=== PATIENT | female | born 1960 | race African-American/Black ===

== ENCOUNTER → 2016-12-16 | Outpatient (CLI) | payer OTHER ==
[~2016-12-16] MED LIST: ASPI81TA11 PO; CARV6.252 PO; FURO40TA PO; GLUCTAB PO; LOSA50TA PO; PRAV40TA PO; PRED10 PO; SPIR25TA PO
--- NOTE | 2017-01-24 10:06 | RSPPFT ---
DATE OF PROCEDURE: 12/16/16 COMMENTS: Spirometry shows FVC of 1.9 at 69% of predicted, FEV1 of 1.7 at 88%, FEV1/FVC ratio is normal. Flow is normal at FEF 25, FEF 50, FEF 75 and FEF 25-75. There is no response after bronchodilator treatment. Residual volume is normal. TLC is increased. Diffusion capacity is decreased. Flow volume loop indicates a normal pattern. IMPRESSION: 1. Normal spirometry. 2. No response to bronchodilator treatment. 3. Lung volumes show mild hyperinflation. 4. Moderate loss in diffusion capacity.
== END ==
LOC: HRSP 08:35
PROVIDERS: ATTEND Specialist
DX: D86.9 Sarcoidosis, unspecified (principal)
CPT/HCPCS: 94060; 94726; 94729

== ENCOUNTER 2017-02-27 11:39 | Emergency (ER) | payer OTHER ==
[~2017-02-27] VITALS: Ht 154.9 cm; Wt 72.0 kg
[2017-02-27 11:41] VITALS: BP 176/70; PULSE 62; RESP 24; TEMP 98.1; O2SAT 99
[2017-02-27 11:58] VITALS: RESP 18
--- NOTE | 2017-02-27 14:28 | PD ---
HPI Chief Complaint: Musculoskeletal Complaint Time Seen by Provider: 14:26 Travel History International Travel<30 days: No Contact w/Intl Traveler<30days: No Traveled to known affect area: No History of Present Illness HPI 57-year-old female presents to the emergency department for evaluation of left leg pain is been ongoing for 2 months. Patient states it hurts from her thigh all the way down to her lower leg. Patient denies any fevers or chills. Patient denies any chest pressure is breath. No abdominal pain. No nausea, vomiting, diarrhea. Patient does have history of CHF, sarcoidosis, history of breast cancer. She is currently on prednisone for sarcoidosis. Patient denies any history of blood clot. She cannot recall any aggravating or relieving factors. She denies any pain in her right leg. Patient denies any other complaints at this time. PFSH Past Medical History Blood Disorders: No Heart Rhythm Problems: No Cancer: Yes (BREAST W CHEMO, SEES DR ESCALANTE, SARCOID) Cardiovascular Problems: Yes High Cholesterol: Yes Chemotherapy: Yes (FEBRUARY 2009 LAST CHEMO) Chest Pain: No Congestive Heart Failure: Yes (Diagnosed in October 2014) Diabetes: Yes Patient Takes Glucophage: No Diminished Hearing: No Endocrine: Yes Gastrointestinal Disorders: Yes (CONSTIPATION) GERD: Yes (occasional) Genitourinary: No Hiatal Hernia: No Hypertension: Yes Immune Disorder: No Musculoskeletal: No Neurologic: No Psychiatric: No Reproductive: No Respiratory: No Immunizations Current: Yes Myocardial Infarction: No Pneumonia: Yes Radiation Therapy: Yes Thyroid Disease: No Ulcer: No ?: Not Menopausal: Yes : 4 Para: 4 Past Surgical History Abdominal Surgery: No AICD: No Appendectomy: No Arteriovenous Shunt: No Cardiac Surgery: No Cholecystectomy: No Ear Surgery: No Endocrine Surgery: No Eye Surgery: No Genitourinary Surgery: No Gynecologic Surgery: Yes (LEFT MASTECTOMY in 2007) Insulin Pump: No Joint Replacement: No Mastectomy: Yes (left ) Oral Surgery: No Pacemaker: No Other Surgery: Yes (LEFT MASTECTOMY IN 2007, port placement ) Social History Alcohol Use: No Tobacco Use: No Substance Use: No Allergies-Medications (Allergen,Severity, Reaction): Coded Allergies: Codeine (Verified Allergy, Intermediate, Shortness of Breath, 02/27/17) Reported Meds & Prescriptions Reported Meds & Active Scripts Active Reported Atorvastatin (Atorvastatin Calcium) 40 Mg Tab 40 Mg PO HS Ecotrin Low Strength (Aspirin) 81 Mg Tabdr 81 Mg PO DAILY Vitamin D3 (Cholecalciferol) 1,000 Unit Tab 1,000 Units PO DAILY Losartan (Losartan Potassium) 50 Mg Tab 75 Mg PO DAILY Carvedilol 25 Mg Tab 25 Mg PO BID Prednisone 10 Mg Tab 10 Mg PO DAILY Review of Systems Except as stated in HPI: all other systems reviewed are Neg Physical Exam Narrative GENERAL: Well-nourished, well-developed female patient, afebrile. SKIN: Focused skin assessment warm/dry. HEAD: Normocephalic. Atraumatic. EYES: No scleral icterus. No injection or drainage. NECK: Supple, trachea midline. No JVD or lymphadenopathy. CARDIOVASCULAR: Regular rate and rhythm without murmurs, gallops, or rubs. Left pedal pulse is 2+. RESPIRATORY: Breath sounds equal bilaterally. No accessory muscle use. Lungs sounds are clear to auscultation. GASTROINTESTINAL: Abdomen soft, non-tender, nondistended. MUSCULOSKELETAL: No cyanosis, or edema. No edema noted of the left leg. She has full range of motion all joints. BACK: No obvious deformity. No CVA tenderness. Patient has tenderness to palpation of midline lumbar spine and left lumbar paraspinal musculature. Data Data Last Documented VS Vital Signs Date Time Temp Pulse Resp B/P Pulse Ox O2 Delivery O2 Flow Rate FiO2 02/27/17 11:58 18 02/27/17 11:41 98.1 62 176/70 99 Room Air Orders Us Leg Venous Doppler (02/27/17 ) Iv Access Insert/Monitor (02/27/17 14:23) Complete Blood Count With Diff (02/27/17 14:23) Basic Metabolic Panel (Bmp) (02/27/17 14:23) Creatine Kinase (Cpk) (02/27/17 14:23) Labs Laboratory Tests Test 02/27/17 14:55 White Blood Count 6.3 TH/MM3 Red Blood Count 4.28 MIL/MM3 Hemoglobin 11.2 GM/DL Hematocrit 34.4 % Mean Corpuscular Volume 80.3 FL Mean Corpuscular Hemoglobin 26.2 PG Mean Corpuscular Hemoglobin 32.6 % Concent Red Cell Distribution Width 15.1 % Platelet Count 563 TH/MM3 Mean Platelet Volume 7.4 FL Neutrophils (%) (Auto) 71.9 % Lymphocytes (%) (Auto) 19.3 % Monocytes (%) (Auto) 6.8 % Eosinophils (%) (Auto) 1.1 % Basophils (%) (Auto) 0.9 % Neutrophils # (Auto) 4.5 TH/MM3 Lymphocytes # (Auto) 1.2 TH/MM3 Monocytes # (Auto) 0.4 TH/MM3 Eosinophils # (Auto) 0.1 TH/MM3 Basophils # (Auto) 0.1 TH/MM3 CBC Comment DIFF FINAL Differential Comment Sodium Level 139 MEQ/L Potassium Level 4.3 MEQ/L Chloride Level 103 MEQ/L Carbon Dioxide Level 27.5 MEQ/L Anion Gap 9 MEQ/L Blood Urea Nitrogen 18 MG/DL Creatinine 0.97 MG/DL Estimat Glomerular Filtration 71 ML/MIN Rate Random Glucose 101 MG/DL Calcium Level 8.7 MG/DL Total Creatine Kinase 72 U/L [facility] Medical Decision Making Medical Screen Exam Complete: Yes Emergency Medical Condition: Yes Medical Record Reviewed: Yes Interpretation(s) Last Impressions Lower Extremity Ultrasound 02/27/17 0000 Signed Impressions: Service Date/Time: , February 27, 2017 15:22 - CONCLUSION: Normal examination. Gutierrez Ferguson MD Differential Diagnosis sciatica vs. DVT vs. muscle spasm vs. muscle strain Narrative Course 57 year old female presents to the emergency department for evaluation of left leg pain for 2 months, no alleviating or aggravating factors. Patient is concerned of DVT. Sciatica more likely. CBC, BMP, CK are ordered and pending. Venous doppler US of the left lower extremity is ordered and pending. CBC shows hemoglobin 11.2, hematocrit 34.3, platelets 563. BMP is unremarkable. CK is 72. US is normal. Laboratory findings and ultrasound findings are reassuring. Symptoms are consistent with sciatica. Patient will be discharged with a prescription for Robaxin. She started to take ibuprofen sxyd-lri-[id number] and follow-up with her primary care physician. She verbalizes agreement and understanding. The patient was discharged in stable condition with instructions, including return instructions and follow up instructions. Diagnosis Primary Impression: Sciatica Qualified Code: M54.32 - Sciatica of left side Referrals: Primary Care Physician call for appointment Patient Instructions: General Instructions, Sciatica (ED) Additional Instructions: Uhdl-hyb-shhvjoi ibuprofen every 6-8 hours as needed for pain. Take Robaxin as directed as needed. Follow-up with your primary care physician. Return to the emergency department for any acute worsening of symptoms. Med/Other Pt SpecificInfo: Prescription(s) given Scripts Methocarbamol (Robaxin)750 Mg [id number] Mg PO TID PRN (MUSCLE SPASM) #21 TAB Ref 0 Prov:Alethea Nj 02/27/17 Disposition: 01 DISCHARGE HOME Condition: Stable Alethea Nj Feb 27, 2017 14:27
[2017-02-27] MEDS ORDERED: PRED10 PO (15:02)
[2017-02-27] MEDS ORDERED: ASPI-147 PO (15:02)
[2017-02-27] MEDS ORDERED: LOSA50TA PO (15:02)
[2017-02-27] MEDS ORDERED: ATOR40TA16 PO (15:02)
[2017-02-27] MEDS ORDERED: CARV25TA PO (15:02)
[2017-02-27] MEDS ORDERED: VITA100064 PO (15:02)
[2017-02-27 15:48] LABS: AUTOMATED NEUTROPHIL # 4.5 TH/MM3 (1.8-7.7); BASOPHIL # 0.1 TH/MM3 (0-0.2); BASOPHIL % 0.9 % (0.0-2.0); EOSINOPHIL # 0.1 TH/MM3 (0-0.4); EOSINOPHIL % 1.1 % (0.0-4.0); HEMATOCRIT 34.4 % (35.0-46.0); HEMO FLAGS DIFF FINAL; LYMPH % 19.3 % (9.0-44.0); LYMPHOCYTE # 1.2 TH/MM3 (1.0-4.8); MEAN CELL VOLUME 80.3 FL (80.0-100.0); MEAN CORPUSCULAR HEMOGLOBIN 26.2 PG (27.0-34.0); MEAN CORPUSCULAR HGB CONC 32.6 % (32.0-36.0); MONO % 6.8 % (0.0-8.0); NEUT % 71.9 % (16.0-70.0); PLATELET COUNT 563 TH/MM3 (150-450); RED BLOOD COUNT 4.28 MIL/MM3 (4.00-5.30); RED CELL DISTRIBUTION WIDTH 15.1 % (11.6-17.2); WHITE BLOOD COUNT 6.3 TH/MM3 (4.0-11.0)
--- NOTE | 2017-02-27 15:59 | RADRPT ---
EXAM DATE/TIME: 02/27/2017 15:22 [facility] COMPARISON: No previous studies available for comparison. INDICATIONS : Left leg pain. MEDICAL HISTORY : Gastroesophageal reflux disease. Hypercholesterolemia. Hypertension. CHF. Diabetes. Chemotherapy. Radiation therapy. SURGICAL HISTORY : Mastectomy, left. Port placement. ENCOUNTER: Initial ACUITY: 1 day PAIN SCORE: 4/10 LOCATION: Left leg. TECHNIQUE: Venous ultrasound of the leg was performed from the inguinal ligament to the proximal calf. Real-allie e, color Doppler and spectral tracing, compression and augmentation techniques were used. FINDINGS: There is normal compressibility of the deep venous system from the inguinal region to the proximal ca lf. No echogenic clot is seen in the lumen of the common femoral, femoral, popliteal, and posterior tibial veins. There is a normal response of the venous system to proximal and distal augmentation an d respiration. CONCLUSION: Normal examination. Gutierrez Ferguson MD on February 27, 2017 at 15:57 Board Certified Radiologist. This report was verified electronically.
[2017-02-27 16:04] LABS: BICARBONATE 27.5 MEQ/L (21.0-32.0); POTASSIUM 4.3 MEQ/L (3.5-5.1)
[2017-02-27] MEDS ORDERED: ROBA750T PO (16:21)
== END 2017-02-27 16:35 | disposition home or self-care (01) ==
LOC: NEPD 11:39
DX: M54.32 Sciatica, left side (principal)
CPT/HCPCS: 80048; 82550; 85025; 93971; 99284

== ENCOUNTER 2017-07-08 12:00 | Inpatient (IN) | payer OTHER ==
[~2017-07-08] VITALS: Ht 154.9 cm; Wt 70.9 kg
[~2017-07-08 12:00] MED LIST changes: +ASPI-147 PO; -ASPI81TA11 PO; +ATOR40TA16 PO; +CARV25TA PO; -CARV6.252 PO; -FURO40TA PO; -GLUCTAB PO; -PRAV40TA PO; -SPIR25TA PO
[2017-08-05] MEDS ORDERED: METF500T PO (14:35)
[2017-08-07] MEDS ORDERED: METOPROLOL TARTRATE 25 MG TAB PO PRN (05:45)
[2017-08-07] MEDS ORDERED: SODIUM CHLORID 0.9% 500 ML IV PRN (05:45)
[2017-08-07] MEDS ORDERED: LACTATED RINGER'S 1000 ML IV PRN (05:45)
[2017-08-07] MEDS ORDERED: POVIDONE IODINE 5% (ANTISEPSIS KIT) 4 APPLICATIONS EACH NARE PRN (05:45)
[2017-08-07] MEDS ORDERED: CHLORHEXIDINE GLUCONATE 2 % 1 PACK (2 CLOTHS) TOPICAL PRN (05:45)
[2017-08-07] MEDS ORDERED: POVIDONE IODINE 7.5% SCRUB 118 ML BOTTLE TOPICAL SCH (06:00)
[2017-08-07] MEDS ORDERED: ceFAZolin 2 GM PREMIX 50 ML IV SCH (06:00)
[2017-08-07] MEDS: VANCOMYCIN 1000 MG/NS 250 ML (for <70 kg) IV SCH ×4 (06:10→07:10)
[2017-08-07] MEDS ORDERED: GENTAMICIN SULFATE 80 MG/2 ML VIAL ONE ×2 (06:16→06:18)
[2017-08-07] MEDS ORDERED: SODIUM CHLORIDE 0.9% IV SCH (07:30)
[2017-08-07] MEDS ORDERED: EXPAREL PERI-ARTICULAR INJECTION (TOTAL VOL. 60 ML) P-ARTICULR SCH ×2 (07:30)
[2017-08-07] MEDS ORDERED: TRANEXAMIC ACID IV SCH (07:30)
[2017-08-07] MEDS ORDERED: ACETAMINOPHEN/HYDROcodone 325 MG/7.5 MG TAB PO PRN (09:00)
--- NOTE | 2017-08-07 09:14 | PD.OP ---
cc: Augustine Payne MD Operative Report Date of Surgery: Aug 07, 2017 Preoperative Diagnosis: Avascular necrosis left hip. Osteoarthritis left hip, severe Postoperative Diagnosis: Same Procedure: Left total hip replacement arthroplasty, direct anterior exposure Anesthesia: Gen. Surgeon: Augustine Payne Cloth Checker(s): MEGHANN Yin Operation and Findings: EBL: 150 cc INDICATION: This patient presents with significant hip pain related to vascular necrosis of the left hip with severe degenerative changes.. Despite extensive conservative care this patient continues to be painful and now presents for surgical treatment. NOTE: Janet Yin PA-C was present for the entire surgical procedure as my assistant professor of philosophy. In my medical opinion her skill and care was necessary for the proper management of this patient. COMPONENTS: COMPANY: [employer] CUP: Anna, 48 mm, 100 series, gription surface LINER: Altrx and 2 mm, neutral STEM: Corail, size 11, high offset, hydroxyapatite-coated HEAD: Ceramic, +1, 32 mm, 12/14 taper PROCEDURE: This patient was brought to the operating room and anesthetized in the supine position and positioned on the fracture table with both legs held extended. The left hip and leg was scrubbed with alcohol followed by Hibiclens followed by ChloraPrep and draped sterilely. Antibiotics were given within routine time window and a timeout was done. A 4 inch incision was made starting 2 cm distal and 2 cm lateral to the anterior superior iliac spine. The fascia carlyle was opened longitudinally. The interval between the fascia carlyle and the rectus was opened down to the capsule of the hip joint. Retractors were positioned allowing good visualization of the capsule. This was opened longitudinally and flaps were created. Stay sutures were utilized. Exposure was excellent. The neck was cut at the proper location using fluoroscopy as a guide. The head was removed. Deep retractors were positioned allowing good visualization of the acetabulum. Acetabulum was deepened down to the floor starting with a proper size reamer and reaming up to 47 mm. A trial was utilized. Fluoroscopy was used to check position and confirmed satisfactory alignment. The rim was reamed with a 48 mm reamer and the final cup was positioned in approximately 20 of anteversion and 40-45 of abduction. Position was satisfactory. A single hole eliminator was positioned followed by the final liner. The lifting hook was utilized. The leg was dropped to the floor, maximally externally rotated and brought across the midline. Retractors were positioned. A box osteotome was utilized followed by progressive broaching to the proper stem size. Trial reduction showed excellent alignment and fit. With 60 of external rotation the leg was dropped to the floor without evidence of anterior subluxation. The wound was irrigated. The final stem was inserted and was found to be very stable. The final reduction using the final head. Stability was as previously noted. Intraoperative x-rays were taken. The wound was irrigated copiously. Hemostasis was controlled. Local anesthesia was utilized. The capsule was repaired with #2 Tycron sutures. The fascia carlyle was repaired with running 0 PDS on a loop. Subcutaneous tissue was approximated with 2-0 Vicryl and skin with running intradermal 3-0 Vicryl followed by Steri-Strips. A sterile dressing was applied. The patient was awakened and taken to the recovery room in satisfactory condition. FINDINGS: There was nearly complete dissolution of the bone and articular cartilage of the left hip related to collapse from avascular necrosis. The final solution was excellent. There was approximately 3/8 of an inch shortening of the left leg compared to the right which was lengthened at the time of surgery to bring the leg bag very close to anatomic compared to the contralateral right side Augustine Payne MD Aug 07, 2017 09:14
[2017-08-07] MEDS ORDERED: HYDR-3580 PO (09:16)
[2017-08-07] MEDS ORDERED: ASPI81 CHEW (09:16)
[2017-08-07] MEDS ORDERED: MISCELLANEOUS NURSING INFORMATION XX PRN (09:30)
[2017-08-07] MEDS ORDERED: NALOXONE HCL 0.4 MG/ML AMP IV PUSH PRN (09:30)
[2017-08-07] MEDS: MAGNESIUM HYDROXIDE SUSP 30 ML CUP PO SCH ×2 (09:30→20:59)
[2017-08-07] MEDS: metFORMIN HCL 500 MG TAB PO SCH (09:30)
[2017-08-07] MEDS ORDERED: DEXTROSE 50% IN WATER 50 ML VIAL(D50) IV PUSH PRN (09:30)
[2017-08-07] MEDS: LOSARTAN 50 MG TAB PO SCH (09:30)
[2017-08-07] MEDS ORDERED: GLUCAGON 1 MG/ML VIAL OTHER PRN (09:30)
[2017-08-07] MEDS: LACTATED RINGER'S 1000 ML INJ 1,000 ML IV SCH ×2 (09:30→22:16)
[2017-08-07] MEDS ORDERED: ASPIRIN 81 MG CHEW TAB CHEW ONE (09:30)
[2017-08-07] MEDS ORDERED: MISCELLANEOUS PHARMACY INFORMATION XX ONE (09:30)
[2017-08-07] MEDS: CARVEDILOL 12.5 MG TAB PO SCH ×2 (09:30→21:00)
[2017-08-07] MEDS: predniSONE 10 MG TAB PO SCH (09:30)
[2017-08-07] MEDS ORDERED: Post-op Orders (for Pharmacy) XX ONE (09:30)
[2017-08-07] MEDS: ASPIRIN EC 325 MG TABEC PO SCH ×2 (09:41→21:00)
[2017-08-07] MEDS ORDERED: DO NOT ADM ANY ANTICOAGULANT DRUGS PRN (09:45)
[2017-08-07] MEDS ORDERED: *morphine SULFATE 8 MG/ML PERIprocedure ONLY ONE ×2 (10:18→12:07)
[2017-08-07] MEDS ORDERED: *ENALAPRILAT 1.25 MG/ML VIAL PERIprocedural Use ONLY ONE ×2 (10:32→12:07)
[2017-08-07] MEDS: INSULIN NovoLIN REGULAR SUPPLEMENTAL SCALE SQ SCH ×3 (12:00→20:51)
[2017-08-07] MEDS ORDERED: PHENYLEPH/NS 1000 MCG/10 ML SYR IV ONE (12:00)
[2017-08-07] MEDS ORDERED: ePHEDrine/NS 25 MG/5 ML SYRINGE IV ONE (12:00)
[2017-08-07] MEDS ORDERED: DEXAMETHASONE SOD PHOS 4 MG/ML VIAL IV ONE (12:00)
[2017-08-07] MEDS ORDERED: ONDANSETRON HCL 4 MG/2 ML VIAL IV ONE (12:00)
[2017-08-07] MEDS ORDERED: PROPOFOL 200 MG/20 ML AMP IV ONE (12:00)
[2017-08-07 13:35] VITALS: BP 188/75; PULSE 67; RESP 16; TEMP 96.1; O2SAT 100
[2017-08-07] MEDS: ACETAMINOPHEN/HYDROcodone 325 MG/7.5 MG TAB PO PRN ×3 (13:54→22:14)
[2017-08-07 16:18] VITALS: BP 148/65; PULSE 61; RESP 16; TEMP 96.6; O2SAT 98
--- NOTE | 2017-08-07 16:48 | RADRPT ---
EXAM DATE/TIME: 08/07/2017 07:42 [facility] COMPARISON: No previous studies available for comparison. INDICATIONS : Left total hip arthroplasty. MEDICAL HISTORY : Unobtainable. SURGICAL HISTORY : Unobtainable. ENCOUNTER: Initial ACUITY: 1 day PAIN SCORE: Non-responsive. LOCATION: Left hip FINDINGS: Previous left total hip replacement. Normal alignment. No complications identified. CONCLUSION: 1. Postoperative left total hip replacement. Taj Castano MD on August 07, 2017 at 16:46 Board Certified Radiologist. This report was verified electronically.
[2017-08-07 20:00] VITALS: BP 132/59; PULSE 75; RESP 16; TEMP 97.2; O2SAT 98
[2017-08-07] MEDS: SENNOSIDES 8.6 MG TAB PO SCH (20:59)
[2017-08-07] MEDS: ATORVASTATIN 40 MG TAB PO SCH (21:00)
[2017-08-07 21:10] VITALS: O2SAT 96
[2017-08-08] VITALS (9 sets, daily range): BP systolic 105–180; BP diastolic 45–87; PULSE 57–76; RESP 16–20; TEMP 96.9–97.9; O2SAT 97–100
[2017-08-08] MEDS: ACETAMINOPHEN/HYDROcodone 325 MG/7.5 MG TAB PO PRN ×5 (02:21→17:25)
[2017-08-08 04:17] LABS: HEMATOCRIT 32.7 % (35.0-46.0); HEMOGLOBIN 10.3 GM/DL (11.6-15.3)
[2017-08-08] MEDS ORDERED: WALKER WHEELS/F1 MIS (07:58)
[2017-08-08] MEDS ORDERED: COMMODE 3-IN-11 MIS (07:59)
[2017-08-08] MEDS: predniSONE 10 MG TAB PO SCH (07:59)
[2017-08-08] MEDS: ASPIRIN EC 325 MG TABEC PO SCH ×2 (07:59→21:00)
[2017-08-08] MEDS: CARVEDILOL 12.5 MG TAB PO SCH ×2 (07:59→21:45)
[2017-08-08] MEDS: metFORMIN HCL 500 MG TAB PO SCH (07:59)
--- NOTE | 2017-08-08 07:59 | HHI.DCPOC ---
Discharge Care Plan Diagnosis: (1) Avascular necrosis of bone of left hip (2) Osteoarthritis of left hip Your Health Problems Are: Difficulty with ADL Incision/Drains Swelling Goals to Promote Your Health * To prevent worsening of your condition and complications * To maintain your health at the optimal level Directions to Meet Your Goals Take your medications as prescribed Follow your dietary instruction Follow activity as directed Keep your appointments as scheduled Take your immunizations and boosters as scheduled If your symptoms worsen call your PCP, if no PCP go to Urgent Care Center or Emergency Room Smoking is Dangerous to Your Health. Avoid second hand smoke Call the 24-hour hour crisis hotline for domestic abuse at Janet Yin Aug 08, 2017 07:59
[2017-08-08] MEDS: LOSARTAN 50 MG TAB PO SCH (08:00)
[2017-08-08] MEDS: MAGNESIUM HYDROXIDE SUSP 30 ML CUP PO SCH ×2 (08:00→21:44)
[2017-08-08] MEDS: INSULIN NovoLIN REGULAR SUPPLEMENTAL SCALE SQ SCH ×4 (08:00→21:00)
--- NOTE | 2017-08-08 08:00 | HHI.DS ---
Discharge Summary Admission Date Aug 07, 2017 at 05:25 Discharge Date: Aug 10, 2017 Admitting Diagnosis see below Diagnosis: (1) Avascular necrosis of bone of left hip Diagnosis: Principal ICD Codes: M87.052 - Idiopathic aseptic necrosis of left femur (2) Osteoarthritis of left hip Diagnosis: Principal ICD Codes: M16.12 - Unilateral primary osteoarthritis, left hip Procedures Left total hip arthroplasty, direct anterior approach Brief History This is a 57 year old female patient CBC/BMP: 08/08/17 0356 Significant Findings Laboratory Tests Test 08/08/17 03:56 Hemoglobin 10.3 GM/DL (11.6-15.3) Hematocrit 32.7 % (35.0-46.0) Hospital Course pod#3 SNF. [facility] 7.5. ASA 81mg bid. Pt Condition on Discharge: Stable Discharge Disposition: Discharge to SNF Discharge Instructions Diet Instructions: As Tolerated, No Restrictions, High Fiber Diet Activities You Can Perform: Regular-No Restrictions Activities to Avoid: Strenuous Activity Additional Activity Instruc.: PATIENCE protocol New Medications: Commode 3-in-1 (Commode 3-in-1) 1 Mis Mis EA .ROUTE DIRECTED, #1 0 Refills Walker with Front Wheels (Walker with Front Wheels) 1 Mis Mis EA .ROUTE DIRECTED, #1 0 Refills Aspirin (Tgt Aspirin) 81 Mg Chw 81 MG CHEW ONCE for Prevent Blood Clot, #60 EA Hydrocodone/Acetaminophen (Hydrocodone-Acetamin 7.5-325) 7.5 Mg-325 Mg Tablet 1 TAB PO Q4H PRN for Pain, #50 TAB Continued Medications: Aspirin DR (Ecotrin Low Strength) 81 Mg Tabdr 81 MG PO DAILY, #30 TAB 0 Refills Atorvastatin (Atorvastatin) 40 Mg Tab 40 MG PO HS for Cholesterol Management, #30 TAB 0 Refills Carvedilol (Carvedilol) 25 Mg Tab 25 MG PO BID, #60 TAB 0 Refills Losartan (Losartan) 50 Mg Tab 75 MG PO DAILY for Blood Pressure Management, #30 TAB 0 Refills Metformin (Metformin) 500 Mg Tab 500 MG PO DAILY for Blood Sugar Management, #30 TAB 0 Refills With a meal Prednisone (Prednisone) 10 Mg Tab 10 MG PO DAILY, TAB 0 Refills Janet Yin Aug 08, 2017 08:00
--- NOTE | 2017-08-08 08:03 | PD.ORT.PN ---
Subjective Subjective Remarks Moderate to substantial left hip pain. Little sleep last night. No new leg pain but alot of groin and hip aching. Denies any CP or SOB. Questions about discharge - believes she needs to go to rehab. Objective Vitals Vital Signs Date Time Temp Pulse Resp B/P (MAP) Pulse Ox O2 Delivery O2 Flow Rate FiO2 08/08/17 04:00 97.1 67 18 126/48 (74) 97 08/08/17 00:00 97.9 74 18 180/75 (110) 98 08/07/17 21:10 96 21 08/07/17 20:00 97.2 75 16 132/59 (83) 98 08/07/17 16:18 96.6 61 16 148/65 (92) 98 08/07/17 13:35 96.1 67 16 188/75 (112) 100 08/07/17 13:00 62 16 162/75 (104) 99 Room Air 08/07/17 12:45 60 16 163/72 (102) 100 Room Air 08/07/17 12:30 62 16 165/75 (105) 98 Room Air 08/07/17 12:15 66 16 168/73 (104) 98 Room Air 08/07/17 12:00 60 16 173/76 (108) 100 Room Air 08/07/17 11:30 60 16 168/73 (104) 97 Room Air 08/07/17 11:00 60 16 170/74 (106) 98 Room Air 08/07/17 10:45 56 16 171/77 (108) 99 Room Air 08/07/17 10:30 56 16 176/68 (104) 99 Room Air 08/07/17 10:15 52 16 152/70 (97) 99 Room Air 08/07/17 10:00 50 16 159/70 (99) 99 Room Air 08/07/17 09:45 50 16 143/69 (93) 99 Room Air 08/07/17 09:30 56 16 138/61 (86) 99 Room Air 08/07/17 09:21 98.0 60 16 121/90 (100) 100 Room Air I/O 08/07/17 08/07/17 08/07/17 08/08/17 08/08/17 08/08/17 07:00 15:00 23:00 07:00 15:00 23:00 Intake Total 918 ml 1400 ml 1510 ml Output Total 3650 ml 600 ml 700 ml Balance -2732 ml 800 ml 810 ml Intake Oral 118 ml 300 ml 360 ml IV Total 800 ml 1100 ml 1150 ml Output Urine Total 500 ml 600 ml 700 ml Estimated Blood Loss 150 ml Other 3000 ml # Bowel Movements 0 Result Diagram: 08/08/17 0356 Procedures Left total hip arthroplasty, direct anterior approach Objective Remarks Sitting up in bed NAD VSS LLE Hip dressing intact, moderate SS proximal dressing, warmth but no erythema +motor at, +sens, +nvi Neg homans sign Assessment & Plan Ortho Post Op Day #: 1 Problem List: (1) Avascular necrosis of bone of left hip ICD Codes: M87.052 - Idiopathic aseptic necrosis of left femur (2) Osteoarthritis of left hip ICD Codes: M16.12 - Unilateral primary osteoarthritis, left hip Qualifiers: Qualified Codes: M16.12 - Unilateral primary osteoarthritis, left hip Assessment and Plan pod#1 s/p L PATIENCE, anterior approach Ortho stable. PO pain meds as needed. PT - WBAT LLE. Anterior protocol. Walker. ASA 81mg bid for dvt prophylaxis. IS encouraged. Single dressing change tomorrow w Optifoam. No dressing changes thereafter. Keep clean and sealed. D/C planning, SNF friday. DME written. [id number] signed. Janet Yni Aug 08, 2017 08:03
[2017-08-08] MEDS: LACTATED RINGER'S 1000 ML INJ 1,000 ML IV SCH ×2 (10:30→23:00)
[2017-08-08] MEDS: SENNOSIDES 8.6 MG TAB PO SCH (21:44)
[2017-08-08] MEDS: ATORVASTATIN 40 MG TAB PO SCH (21:46)
[2017-08-09] VITALS: BP 120/46; PULSE 70; RESP 20; TEMP 97.9; O2SAT 98
[2017-08-09] MEDS: ACETAMINOPHEN/HYDROcodone 325 MG/7.5 MG TAB PO PRN ×4 (01:42→20:08)
[2017-08-09 08:00] VITALS: BP 134/50; PULSE 62; RESP 18; TEMP 98.2; O2SAT 99
[2017-08-09] MEDS: INSULIN NovoLIN REGULAR SUPPLEMENTAL SCALE SQ SCH ×4 (08:00→20:13)
--- NOTE | 2017-08-09 08:32 | PD.ORT.PN ---
Subjective Post Op Day #: 2 Subjective Remarks pain improving Objective Vitals Vital Signs Date Time Temp Pulse Resp B/P (MAP) Pulse Ox O2 Delivery O2 Flow Rate FiO2 08/09/17 00:00 97.9 70 20 120/46 (70) 98 08/08/17 20:00 97.8 67 20 106/57 (73) 98 08/08/17 18:22 98 21 08/08/17 16:47 96.9 67 16 156/60 (92) 98 08/08/17 16:00 96.9 57 16 156/60 (92) 100 08/08/17 12:00 97.7 59 16 105/45 (65) 98 I/O 08/08/17 08/08/17 08/08/17 08/09/17 08/09/17 08/09/17 07:00 15:00 23:00 07:00 15:00 23:00 Intake Total 1510 ml 600 ml 480 ml Output Total 700 ml Balance 810 ml 600 ml 480 ml Intake Oral 360 ml 600 ml 480 ml IV Total 1150 ml Output Urine Total 700 ml # Voids 3 3 # Bowel Movements 0 Result Diagram: 08/08/17 0356 Procedures Left total hip arthroplasty, direct anterior approach Objective Remarks Sitting up in chair NAD VSS LLE Hip dressing intact, moderate SS proximal dressing, warmth but no erythema +motor at, +sens, +nvi Neg homans sign Assessment & Plan Ortho Post Op Day #: 2 Problem List: (1) Avascular necrosis of bone of left hip ICD Codes: M87.052 - Idiopathic aseptic necrosis of left femur (2) Osteoarthritis of left hip ICD Codes: M16.12 - Unilateral primary osteoarthritis, left hip Qualifiers: Qualified Codes: M16.12 - Unilateral primary osteoarthritis, left hip Assessment and Plan pod#2 s/p L PATIENCE, anterior approach Ortho stable. PO pain meds as needed. PT - WBAT LLE. Anterior protocol. Walker. ASA 81mg bid for dvt prophylaxis. IS encouraged. Single dressing change w Optifoam, completed. No dressing changes thereafter. Keep clean and sealed. D/C planning, [facility] vs SNF friday. DME written. [id number] signed. Vish Black Aug 09, 2017 08:32
[2017-08-09] MEDS: LOSARTAN 50 MG TAB PO SCH (09:00)
[2017-08-09] MEDS: predniSONE 10 MG TAB PO SCH (09:04)
[2017-08-09] MEDS: CARVEDILOL 12.5 MG TAB PO SCH ×2 (09:04→20:09)
[2017-08-09] MEDS: MAGNESIUM HYDROXIDE SUSP 30 ML CUP PO SCH ×2 (09:05→20:07)
[2017-08-09] MEDS: metFORMIN HCL 500 MG TAB PO SCH (09:05)
[2017-08-09] MEDS: ASPIRIN EC 325 MG TABEC PO SCH (09:05)
[2017-08-09] MEDS: LACTATED RINGER'S 1000 ML INJ 1,000 ML IV SCH (11:30)
[2017-08-09 12:00] VITALS: BP 95/41; PULSE 85; RESP 18; TEMP 96.6; O2SAT 100
[2017-08-09 16:00] VITALS: BP 105/42; PULSE 58; RESP 18; TEMP 97.5; O2SAT 99
[2017-08-09 20:00] VITALS: BP 129/56; PULSE 60; RESP 20; TEMP 98; O2SAT 98
[2017-08-09] MEDS: ASPIRIN EC 81 MG TABEC PO SCH (20:07)
[2017-08-09] MEDS: ATORVASTATIN 40 MG TAB PO SCH (20:07)
[2017-08-09] MEDS: SENNOSIDES 8.6 MG TAB PO SCH (20:08)
[2017-08-10] VITALS: BP 135/53; PULSE 67; RESP 20; TEMP 98.1; O2SAT 96
[2017-08-10] MEDS: ACETAMINOPHEN/HYDROcodone 325 MG/7.5 MG TAB PO PRN ×4 (01:32→15:45)
--- NOTE | 2017-08-10 07:16 | PD.ORT.PN ---
Subjective Subjective Remarks Patient resting, this morning. No acute events. Pain well controlled. She states she plans to go home likely tomorrow Objective Vitals Vital Signs Date Time Temp Pulse Resp B/P (MAP) Pulse Ox O2 Delivery O2 Flow Rate FiO2 08/10/17 00:00 98.1 67 20 135/53 (80) 96 08/09/17 20:00 98.0 60 20 129/56 (80) 98 08/09/17 16:00 97.5 58 18 105/42 (63) 99 08/09/17 12:00 96.6 85 18 95/41 (59) 100 08/09/17 08:00 98.2 62 18 134/50 (78) 99 I/O 08/09/17 08/09/17 08/09/17 08/10/17 08/10/17 08/10/17 07:00 15:00 23:00 07:00 15:00 23:00 Intake Total 480 ml 600 ml 650 ml Output Total 1200 ml Balance 480 ml 600 ml -550 ml Intake Oral 480 ml 600 ml 650 ml Output Urine Total 1200 ml # Voids 3 3 12 # Bowel Movements 0 Result Diagram: 08/08/17 0356 Procedures Left total hip arthroplasty, direct anterior approach Objective Remarks Resting comfortable in bed NAD VSS LLE Hip dressing intact, warmth but no erythema +motor at, +sens, +nvi Neg homans sign Assessment & Plan Problem List: (1) Avascular necrosis of bone of left hip ICD Codes: M87.052 - Idiopathic aseptic necrosis of left femur (2) Osteoarthritis of left hip ICD Codes: M16.12 - Unilateral primary osteoarthritis, left hip Qualifiers: Qualified Codes: M16.12 - Unilateral primary osteoarthritis, left hip Assessment and Plan pod#3 s/p L PATIENCE, anterior approach Ortho stable. PO pain meds as needed. PT - WBAT LLE. Anterior protocol. Walker. ASA 81mg bid for dvt prophylaxis. IS encouraged. Single dressing change w Optifoam, completed. No dressing changes thereafter. Keep clean and sealed. D/C planning, patient states she plans to go home with home healthcare she does not want to pay a co-pay for rehabilitation. Plan for DC either this afternoon versus tomorrow. Humera Fallon MD Aug 10, 2017 07:16
[2017-08-10 08:00] VITALS: BP 102/45; PULSE 76; RESP 18; TEMP 96.6; O2SAT 97
[2017-08-10] MEDS: INSULIN NovoLIN REGULAR SUPPLEMENTAL SCALE SQ SCH ×2 (08:00→12:00)
[2017-08-10] MEDS: LOSARTAN 50 MG TAB PO SCH (08:17)
[2017-08-10] MEDS: CARVEDILOL 12.5 MG TAB PO SCH (08:17)
[2017-08-10] MEDS: predniSONE 10 MG TAB PO SCH (08:17)
[2017-08-10] MEDS: MAGNESIUM HYDROXIDE SUSP 30 ML CUP PO SCH (08:17)
[2017-08-10] MEDS: metFORMIN HCL 500 MG TAB PO SCH (08:17)
[2017-08-10] MEDS: ASPIRIN EC 81 MG TABEC PO SCH (08:18)
[2017-08-10 12:00] VITALS: BP 116/51; PULSE 77; RESP 18; TEMP 97.9; O2SAT 96
[2017-08-10] MEDS: LACTATED RINGER'S 1000 ML INJ 1,000 ML IV SCH ×2 (12:30)
--- NOTE | 2017-08-10 13:26 | HHI.FF ---
Face to Face Verification Diagnosis: (1) Osteoarthritis of left hip Physical Therapy Gait training Hip: Total hip Left LE Weight Bearing: WB as tolerated Nursing Dressing Changes: Do not change dressing I have seen patient Veronica Kohler on 08/10/17. My clinical findings support the need for the requested home health care services because: she has limited mobility postop from total hip arthroplasty Ltd mobility - disease progression High risk of falls I certify that my clinical findings support that this patient is homebound because: she is postop from total hip arthroplasty with hip precautions and requires use of walker and assistance to mobilize Unsteady gait/balance Unsafe to leave home unassisted Humera Fallon MD Aug 10, 2017 13:26
[2017-08-10 14:00] VITALS: O2SAT 98
== END 2017-08-10 16:36 | disposition home health service (06) | DRG 470 ==
LOC: HSDI 08-07 05:25 → N06B 08-07 13:33
PROVIDERS: ADMIT Orthopaedic Surgery Orthopaedic Surgery of the Spine; ATTEND Orthopaedic Surgery Orthopaedic Surgery of the Spine
PROC: 0SRB049 Replacement of Left Hip Joint with Ceramic on Polyethylene Synthetic Substitute, Cemented, Open Approach (ICD-10-PCS; principal; 2017-08-07 07:10)
DX: M16.12 Unilateral primary osteoarthritis, left hip (principal); M87.9 Osteonecrosis, unspecified
CPT/HCPCS: 73502; 76000; 82948; 85014; 85018; 86850; 86900; 86901; 86920; 94150; C1776; C9290; J0690; J1100; J1580; J2270; J2370; J2405; J3370; J7050; J7120; J7512

== ENCOUNTER 2018-03-09 09:47 | Observation (INO) ==
--- NOTE | 2018-03-09 10:42 | ED ---
HPI General Chief Complaint: Shortness of Breath/Dyspnea Stated Complaint: SOB Time Seen by Provider: 03/09/18 10:39 History of Present Illness The patient is a 4-year-old -[place] female with past medical history of CHF and hypertension presenting for evaluation of shortness of breath. The patient reports that she became short of breath late last night and it has been persistent so she wanted to be evaluated. The shortness of breath began acutely while sitting at home and is described as mild. She reports that the shortness of breath is worse when she lies flat and notes no alleviating factors. She describes it as "cannot catch my breath". She denies any associated chest pain/pressure or peripheral edema. She denies a history of lung problems and is not on home. She was recently taken off of her diuretic but is unsure why. Related Data Home Medications Medication Instructions Recorded Confirmed atorvastatin [Lipitor] 40 mg PO HS 03/09/18 03/09/18 carvedilol [Coreg] 25 mg PO BID 03/09/18 03/09/18 duloxetine [Cymbalta] 30 mg PO DAILY 03/09/18 03/09/18 hydrocodone-acetaminophen 1 tab PO Q6H PRN 03/09/18 03/09/18 losartan 150 mg PO DAILY 03/09/18 03/09/18 Previous Rx's Medication Instructions Recorded amlodipine [Norvasc] 10 mg PO DAILY #30 tab 03/10/18 furosemide [Lasix] 20 mg PO BID #60 tab 03/10/18 potassium chloride [Klor-Con 20 meq PO DAILY #30 cap 03/10/18 Sprinkle] Allergies Allergy/AdvReac Type Severity Reaction Status Date / Time codeine Allergy Intermediate Shortness Verified 03/09/18 09:56 of Breath [facility] Medical History Medical History Breast cancer (Acute) Congestive heart failure (Acute) Hyperlipidemia (Acute) Hypertension (Acute) Surgical History Surgical History H/O mastectomy (Acute) History of hip replacement (Acute) Social History Social History Substance History: No History of Abuse Second Hand Smoke Exposure: No Smoking Status: Never smoker How Often Do You Have a Drink Containing Alcohol: Never Recent Travel in [facility] within the Last 8 Weeks: No Recent Out of Country Travel within the Last 8 Weeks: No Immunization History Tetanus Immunization: >5 Years Course Initial Documented Vital Signs Temperature 98 F 03/09/18 09:52 Pulse Rate 87 03/09/18 09:52 Respiratory Rate 16 03/09/18 09:52 Blood Pressure 131/56 L 03/09/18 09:52 Last Documented Vital Signs Temperature 98.3 F 03/10/18 11:32 Pulse Rate 65 03/10/18 11:32 Respiratory Rate 18 03/10/18 11:32 Blood Pressure 128/60 03/10/18 11:32 Pulse Oximetry 95 03/10/18 11:32 Medical Decision Making MDM Narrative Medical decision making narrative: 58-year-old female presented complaints of shortness of breath. Patient states that she cannot lie flat. The patient reports that she does have a history of CHF. She has been given Bumex 1 mg IV 1. She has been diuresing. Her BNP was over 1000. The patient was discussed with the admitting physician. Patient will be placed in observation for admission. She will be diuresed. She does have renal insufficiency therefore she needs gentle diuresis. Differential Diagnosis Differential Diagnosis: CHF versus pneumonia versus ACS Lab Data Result diagrams: 03/10/18 05:50 03/10/18 05:50 Lab Results 03/09/18 03/09/18 03/09/18 Range/Units 11:25 11:25 11:25 WBC 5.1 (4.0-11.0) th/mm3 RBC 4.40 (4.00-5.30) mil/mm3 Hgb 12.1 (11.6-15.3) gm/dL Hct 37.5 (35.0-46.0) % MCV 85.3 (80.0-100.0) fL MCH 27.4 (27.0-34.0) pg MCHC 32.1 (32.0-36.0) % RDW 14.7 (11.6-17.2) % Plt Count 323 (150-450) th/mm3 MPV 8.4 (7.0-11.0) fL Neut % (Auto) 51.0 (16.0-70.0) % Lymph % (Auto) 29.4 (9.0-44.0) % Gates % (Auto) 12.9 H (0.0-8.0) % Eos % (Auto) 5.9 H (0.0-4.0) % Baso % (Auto) 0.8 (0.0-2.0) % Neut # (Auto) 2.6 (1.8-7.7) th/mm3 Lymph # (Auto) 1.5 (1.0-4.8) th/mm3 Gates # (Auto) 0.7 (0.0-0.9) th/mm3 Eos # (Auto) 0.3 (0.0-0.4) th/mm3 Baso # (Auto) 0.0 (0.0-0.2) th/mm3 WBC Differential . Differential Comment Auto diff final PT 13.0 H (9.8-11.6) sec INR 1.3 Ratio APTT 26.4 (24.3-30.1) sec Puncture Site Patient Temperature O2 Saturation (90-100) % ABG pH (7.380-7.420) ABG pCO2 (38-42) mmHg ABG pO2 (61-120) mmHg ABG HCO3 (22-26) mmol/L ABG O2 Content (12.0-20.0) Vol % ABG Base Excess (-2-2) mmol/L ABG Methemoglobin (0-2) % Errol Test Hemoglobin (12.0-16.0) G/DL Carboxyhemoglobin (0-4) % O2 Delivery Device Inspired O2 % Critical Value Sodium 141 (136-145) meq/L Potassium 3.8 (3.5-5.1) meq/L Chloride 109 H (98-107) meq/L Carbon Dioxide 21.5 (21.0-32.0) meq/L Anion Gap 11 (5-15) meq/L BUN 14 (7-18) mg/dL Creatinine 1.11 H (0.50-1.00) mg/dL Estimated GFR 61 L (>89) mL/min Random Glucose 118 H (74-106) mg/dL Calcium 8.8 (8.5-10.1) mg/dL Total Bilirubin 1.0 (0.2-1.0) mg/dL AST 20 (15-37) U/L ALT 22 (10-53) U/L Alkaline Phosphatase 107 (45-117) U/L Total Creatine Kinase 70 (26-192) U/L Troponin I Less than 0.02 L (0.02-0.05) ng/mL B-Natriuretic Peptide (0-100) pg/mL Total Protein 6.5 (6.4-8.2) g/dL Albumin 3.1 L (3.4-5.0) g/dL TSH (0.358-3.740) uIU/mL 03/09/18 03/09/18 03/10/18 Range/Units 11:25 12:12 05:50 WBC 8.2 D (4.0-11.0) th/mm3 RBC 4.79 (4.00-5.30) mil/mm3 Hgb 13.1 (11.6-15.3) gm/dL Hct 40.5 (35.0-46.0) % MCV 84.7 (80.0-100.0) fL MCH 27.3 (27.0-34.0) pg MCHC 32.3 (32.0-36.0) % RDW 14.7 (11.6-17.2) % Plt Count 353 (150-450) th/mm3 MPV 8.1 (7.0-11.0) fL Neut % (Auto) (16.0-70.0) % Lymph % (Auto) (9.0-44.0) % Gates % (Auto) (0.0-8.0) % Eos % (Auto) (0.0-4.0) % Baso % (Auto) (0.0-2.0) % Neut # (Auto) (1.8-7.7) th/mm3 Lymph # (Auto) (1.0-4.8) th/mm3 Gates # (Auto) (0.0-0.9) th/mm3 Eos # (Auto) (0.0-0.4) th/mm3 Baso # (Auto) (0.0-0.2) th/mm3 WBC Differential Differential Comment PT (9.8-11.6) sec INR Ratio APTT (24.3-30.1) sec Puncture Site Right radial Patient Temperature 98.6 O2 Saturation 90 (90-100) % ABG pH 7.45 H (7.380-7.420) ABG pCO2 37 L (38-42) mmHg ABG pO2 61 (61-120) mmHg ABG HCO3 25 (22-26) mmol/L ABG O2 Content 14.8 (12.0-20.0) Vol % ABG Base Excess 1.4 (-2-2) mmol/L ABG Methemoglobin 0.5 (0-2) % Errol Test Present Hemoglobin 11.7 L (12.0-16.0) G/DL Carboxyhemoglobin 1.5 (0-4) % O2 Delivery Device Room air Inspired O2 21 % Critical Value No Sodium (136-145) meq/L Potassium (3.5-5.1) meq/L Chloride (98-107) meq/L Carbon Dioxide (21.0-32.0) meq/L Anion Gap (5-15) meq/L BUN (7-18) mg/dL Creatinine (0.50-1.00) mg/dL Estimated GFR (>89) mL/min Random Glucose (74-106) mg/dL Calcium (8.5-10.1) mg/dL Total Bilirubin (0.2-1.0) mg/dL AST (15-37) U/L ALT (10-53) U/L Alkaline Phosphatase (45-117) U/L Total Creatine Kinase (26-192) U/L Troponin I (0.02-0.05) ng/mL B-Natriuretic Peptide 1183 H (0-100) pg/mL Total Protein (6.4-8.2) g/dL Albumin (3.4-5.0) g/dL TSH (0.358-3.740) uIU/mL 03/10/18 Range/Units 05:50 WBC (4.0-11.0) th/mm3 RBC (4.00-5.30) mil/mm3 Hgb (11.6-15.3) gm/dL Hct (35.0-46.0) % MCV (80.0-100.0) fL MCH (27.0-34.0) pg MCHC (32.0-36.0) % RDW (11.6-17.2) % Plt Count (150-450) th/mm3 MPV (7.0-11.0) fL Neut % (Auto) (16.0-70.0) % Lymph % (Auto) (9.0-44.0) % Gates % (Auto) (0.0-8.0) % Eos % (Auto) (0.0-4.0) % Baso % (Auto) (0.0-2.0) % Neut # (Auto) (1.8-7.7) th/mm3 Lymph # (Auto) (1.0-4.8) th/mm3 Gates # (Auto) (0.0-0.9) th/mm3 Eos # (Auto) (0.0-0.4) th/mm3 Baso # (Auto) (0.0-0.2) th/mm3 WBC Differential Differential Comment PT (9.8-11.6) sec INR Ratio APTT (24.3-30.1) sec Puncture Site Patient Temperature O2 Saturation (90-100) % ABG pH (7.380-7.420) ABG pCO2 (38-42) mmHg ABG pO2 (61-120) mmHg ABG HCO3 (22-26) mmol/L ABG O2 Content (12.0-20.0) Vol % ABG Base Excess (-2-2) mmol/L ABG Methemoglobin (0-2) % Errol Test Hemoglobin (12.0-16.0) G/DL Carboxyhemoglobin (0-4) % O2 Delivery Device Inspired O2 % Critical Value Sodium 137 (136-145) meq/L Potassium 3.7 (3.5-5.1) meq/L Chloride 102 (98-107) meq/L Carbon Dioxide 29.4 (21.0-32.0) meq/L Anion Gap 6 (5-15) meq/L BUN 17 (7-18) mg/dL Creatinine 0.87 (0.50-1.00) mg/dL Estimated GFR 80 L (>89) mL/min Random Glucose 140 H (74-106) mg/dL Calcium 9.3 (8.5-10.1) mg/dL Total Bilirubin (0.2-1.0) mg/dL AST (15-37) U/L ALT (10-53) U/L Alkaline Phosphatase (45-117) U/L Total Creatine Kinase (26-192) U/L Troponin I (0.02-0.05) ng/mL B-Natriuretic Peptide (0-100) pg/mL Total Protein (6.4-8.2) g/dL Albumin (3.4-5.0) g/dL TSH 0.251 L (0.358-3.740) uIU/mL Imaging Data Radiologist's impression: Chest X-Ray 03/09/18 11:16 CONCLUSION: Mild prominence of interstitium which may represent pulmonary venous hypertension or mild edema. Mild left pleural effusion. Discharge Plan Discharge Disposition Patient Disposition: 01 Discharge Home Discharge Condition Condition: Stable Discharge Order Discharge Orders: Discharge Order (Routine); Ordered 03/10/18 Ordered By: Kristen Delacruz Discharge Details Anticipated Discharge Date: 03/10/18 Discharge Comment: Go to get blood work done on 03/16/18 Call to schedule a followup appt with Dr. De Los Santos in 1-2 weeks for echocardiogram results Call to schedule a followup appt with your PCP, Dr. Sims Weigh yourself daily. If you gain more than 5lbs in 3 days call your PCP or [facility] for further instructions. Check your blood pressure daily and keep a log to provide to your [facility]. Diagnosis: CHF exacerbation, Chronic kidney insufficiency Physicians Team ED Provider: Jacek Guy Attending Provider: Jake Orozco Other Providers: Casimiro Dean Discharge Interventions Interventions: ED Discharge Assessment Last Done: 03/09/18 15:30 Vital Signs Last Done: 03/09/18 14:30 Status ED Status: Left Department Discharge Information Discharge Date/Time: 03/09/18 15:30
[2018-03-09] MEDS ORDERED: MethylPREDNISolone Sod Succinate Inj 125 MG/2 ML Vial IV.PUSH ONE (11:16)
[2018-03-09 11:47] LABS: Baso % (Auto) 0.8 % (0.0-2.0); Eos # (Auto) 0.3 th/mm3 (0.0-0.4); Eos % (Auto) 5.9 % (0.0-4.0); Hematocrit 37.5 % (35.0-46.0); Hemoglobin 12.1 gm/dL (11.6-15.3); Lymph # (Auto) 1.5 th/mm3 (1.0-4.8); Lymph % (Auto) 29.4 % (9.0-44.0); Mean Corpuscular HGB Conc 32.1 % (32.0-36.0); Mean Corpuscular Hemoglobin 27.4 pg (27.0-34.0); Mean Corpuscular Volume 85.3 fL (80.0-100.0); Mean Platelet Volume 8.4 fL (7.0-11.0); Mono # (Auto) 0.7 th/mm3 (0.0-0.9); Mono % (Auto) 12.9 % (0.0-8.0); Neut # (Auto) 2.6 th/mm3 (1.8-7.7); Platelet Count 323 th/mm3 (150-450); Red Cell Distribution Width 14.7 % (11.6-17.2); White Blood Count 5.1 th/mm3 (4.0-11.0)
[2018-03-09 12:00] LABS: Activated Partial Thrombo Time 26.4 sec (24.3-30.1); INR 1.3 Ratio
[2018-03-09 12:03] LABS: Alanine Aminotransferase 22 U/L (10-53); Albumin 3.1 g/dL (3.4-5.0); Anion Gap 11 meq/L (5-15); Aspartate Aminotransferase 20 U/L (15-37); Blood Urea Nitrogen 14 mg/dL (7-18); Calcium 8.8 mg/dL (8.5-10.1); Carbon Dioxide 21.5 meq/L (21.0-32.0); Chloride 109 meq/L (98-107); Glomerular Filtration Rate 61 mL/min (>89); Glucose,Random 118 mg/dL (74-106); Potassium 3.8 meq/L (3.5-5.1); Sodium 141 meq/L (136-145)
[2018-03-09 12:07] LABS: Alkaline Phosphatase 107 U/L (45-117); Total Protein 6.5 g/dL (6.4-8.2)
[2018-03-09 12:14] LABS: Creatine Kinase 70 U/L (26-192)
[2018-03-09 12:25] LABS: ABG Base Excess 1.4 mmol/L (-2-2); ABG PCO2 37 mmHg (38-42); ABG PO2 61 mmHg (61-120)
--- NOTE | 2018-03-09 12:27 | XR ---
EXAM DATE: 03/09/2018 12:18 PM EDT AGE/SEX: 58 years / Female INDICATIONS: Short of breath. CLINICAL DATA: This is the patient's initial encounter. Patient reports that signs and symptoms have been present for 2 days and indicates a pain score of 0/10. MEDICAL/SURGICAL HISTORY: Congestive heart failure. None. COMPARISON: No prior exams available for comparison. FINDINGS: The heart size is upper limits of normal. There is mild prominence of the interstitium. There is a mi ld left pleural effusion. A focal area of alveolar consolidation is not seen. CONCLUSION: Mild prominence of interstitium which may represent pulmonary venous hypertension or mild edema. Mild left pleural effusion. Electronically signed by: Alf Saab MD 03/09/2018 12:25 PM EDT
[2018-03-09] MEDS ORDERED: Acetaminophen 325 MG Tablet PO PRN (15:16)
--- NOTE | 2018-03-09 15:36 | P.HP ---
History of Present Illness Primary Care Physician: Gabriel Sims History of Present Illness: 58-year-old female with a history of CHF, hypertension, dyslipidemia. She presents to the ER after becoming acutely dyspneic at work. She had been suffering with intermittent dyspnea since early yesterday but felt well enough this morning to go to work. As the day progressed she became increasingly short of breath. She was only able to take a few steps without becoming acutely short of breath. She was diagnosed with CHF in 2014 when a similar episode occurred. At that time she received an echocardiogram which showed an ejection fraction between 25 and 30%. Echocardiogram was most recently done last December, but those results are not available at this time. Separately she has a diagnosis of sarcoidosis secondary to radiation for left breast cancer a number of years ago. In the past she has been on prednisone for treatment of this, but is not currently on prednisone and has not been on prednisone for at least a year. Pulmonary function testing last month was normal for the most part, but did show some moderate decrease in her diffusion capacity. She denies any chest pain, denies fevers, denies cough. Review of Systems Constitutional: Denies anorexia, Denies body ache(s), Denies chills, Denies daytime sleepiness, Denies excessive sweating, Denies fatigue, Denies fever(s), Denies headache(s), Denies increased appetite, Denies lack of energy, Denies malaise, Denies night sweats, Denies weakness, Denies weight gain, Denies weight loss, Denies other Eyes: Denies blind spots, Denies blurry vision, Denies bulging eyes, Denies change in vision, Denies double vision, Denies discharge, Denies dry eyes, Denies floaters, Denies irritation, Denies itchy eyes, Denies loss of vision, Denies pain, Denies requires corrective lenses, Denies sensitivity to light, Denies other Ears, Nose, Mouth, and Throat: Denies abnormal hearing, Denies bleeding gums, Denies bad breath, Denies change in voice, Denies dental pain, Denies difficulty swallowing, Denies dizziness, Denies dry mouth, Denies ear discharge , Denies ear pain, Denies facial pain, Denies headache(s), Denies hearing loss, Denies hoarseness, Denies lip swelling, Denies nosebleed, Denies mouth lesions, Denies mouth pain, Denies nasal congestion, Denies nasal discharge, Denies nasal obstruction, Denies nasal trauma, Denies neck lump, Denies neck pain, Denies nose pain, Denies pain with swallowing, Denies poor balance, Denies post nasal drip, Denies ringing in the ears, Denies sinus pain, Denies sinus pressure , Denies sore throat, Denies throat swelling, Denies tongue swelling, Denies other Cardiovascular: Reports shortness of breath, Denies chest pain, Denies chest pain at rest, Denies chest pain with activity, Denies excessive sweating, Denies fainting, Denies foot swelling, Denies generalized swelling, Denies irregular heart rhythm, Denies leg pain with activity, Denies leg sores, Denies leg swelling, Denies lightheadedness, Denies radiating jaw, neck or arm pain, Denies rapid, pounding, or irregular heartbeat, Denies shortness of breath with activity, Denies shortness of breath when lying down, Denies shortness of breath causing sudden awakening Respiratory: Reports shortness of breath, Reports shortness of breath with activity, Denies change in phlegm color, Denies chest congestion, Denies cough, Denies coughing up blood, Denies excessive phlegm production, Denies pain on inspiration, Denies pain with cough, Denies snoring, Denies wheezing Gastrointestinal: Denies abdominal pain, Denies belching, Denies black, tarry stools, Denies bloating, Denies bright, red blood in stools, Denies change in bowel habits, Denies constant urge to pass stool, Denies change in stools, Denies coffee ground vomit, Denies constipation, Denies cramping, Denies difficulty swallowing, Denies excessive passing of gas, Denies feeling full early, Denies heartburn, Denies incontinent of stools, Denies loose stools, Denies nausea, Denies pain with swallowing, Denies vomiting, Denies vomiting blood, Denies other Musculoskeletal: Denies abnormal walking, Denies back pain, Denies body aches, Denies decreased muscle mass, Denies deformity, Denies joint pain, Denies joint swelling, Denies limited joint movement, Denies loss of height, Denies muscle cramps, Denies muscle weakness, Denies neck pain, Denies numbness, Denies radiating pain into limb, Denies stiffness, Denies tingling, Denies other Skin/Breast: Denies acne, Denies bleeding lesions, Denies boil, Denies breast swelling, Denies breast skin changes, Denies breast pain, Denies breast lump, Denies change in breast shape, Denies change in hair, Denies change in skin color, Denies changing lesions, Denies dry skin, Denies excessive hair growth, Denies hair loss, Denies itching, Denies lesions, Denies nail changes, Denies new lesions, Denies nipple discharge, Denies non-healing lesions, Denies redness , Denies sensitivity to light, Denies rash, Denies skin pain, Denies skin ulcer , Denies sores, Denies stretch brandt, Denies unusual bruising, Denies wounds, Denies yellowing of the skin, Denies other Neurologic: Denies abnormal hearing, Denies abnormal movements, Denies abnormal speech, Denies abnormal walking, Denies behavioral changes, Denies burning sensations, Denies confusion, Denies dizziness, Denies fainting, Denies frequent falls, Denies headache(s), Denies lack of coordination, Denies localized weakness, Denies loss of vision, Denies memory loss, Denies numbness, Denies other visual disturbances, Denies radiating pain, Denies restless legs, Denies convulsions, Denies seizure-like activity, Denies sensory deficit, Denies tingling, Denies tingling/numbness/burning sensations, Denies tremor(s), Denies unsteadiness, Denies weakness, Denies other Psychiatric: Denies abnormal sleep pattern, Denies anxiety, Denies behavioral changes, Denies change in appetite, Denies change in sex drive, Denies confusion , Denies depression, Denies difficulty concentrating, Denies hearing things others do not hear, Denies hopelessness, Denies irritability, Denies lack of enjoyment, Denies memory loss, Denies mood swings, Denies panic attacks, Denies paranoia, Denies seeing things others do not see, Denies sensing things others do not sense, Denies tactile hallucinations, Denies thoughts of hurting/killing others, Denies thoughts of hurting/killing yourself, Denies other Endocrine: Denies cold intolerance, Denies excessive sweating, Denies flushing, Denies heat intolerance, Denies increased hunger, Denies increased thirst, Denies increased urination, Denies rapid, pounding, or irregular heartbeat, Denies other PMFSH - History History Provided By: Patient - Medical History Medical History: Medical History (Last Updated 03/09/18 @ 10:05 by Lulu Estrada) Breast cancer Congestive heart failure Hyperlipidemia Hypertension - Surgical History Surgical History: Surgical History (Last Updated 03/09/18 @ 10:05 by Lulu Estrada) H/O mastectomy History of hip replacement - Tobacco History Smoking Status: Never smoker - Alcohol History How Often Do You Have a Drink Containing Alcohol: 2 to 4 times a month - Substance Use History Substance History: No History of Abuse - Travel History Recent Travel in the [place] Within the Last 8 Weeks: No Recent Travel Out of the Country Within the Last 8 Weeks: No - Immunization History Tetanus Immunization: >5 Years Medications and Allergies Active Medications: Active Medications Acetaminophen (Tylenol) 650 mg PO Q4H PRN PRN Reason: Temp > 100.4 Hydrocodone Bitart/Acetaminophen ([place] 5/325) 1 tab PO Q6H PRN PRN Reason: Pain Albuterol (Albuterol Neb (Prn)) 2.5 mg NEB Q15M PRN PRN Reason: DYSPNEA Atorvastatin Calcium (Lipitor) 40 mg PO HS NANI Bumetanide (Bumex Inj) 1 mg IV.PUSH BID@0900,1800 NANI Carvedilol (Coreg) 25 mg PO BID NANI Duloxetine HCl (Cymbalta) 30 mg PO DAILY NANI Enoxaparin Sodium (Lovenox Inj) 40 mg SQ Q24H NANI Non-Formulary Medication (Losartan [Losartan]) 150 mg PO DAILY NANI Temazepam (Restoril) 15 mg PO HS PRN PRN Reason: INSOMNIA Allergies Allergy/AdvReac Type Severity Reaction Status Date / Time codeine Allergy Intermediate Shortness Verified 03/09/18 09:56 of Breath Home Medications Medication Instructions Recorded Confirmed Type atorvastatin [Lipitor] 40 mg PO HS 03/09/18 03/09/18 History carvedilol [Coreg] 25 mg PO BID 03/09/18 03/09/18 History duloxetine [Cymbalta] 30 mg PO DAILY 03/09/18 03/09/18 History hydrocodone-acetaminophen 1 tab PO Q6H PRN 03/09/18 03/09/18 History losartan 150 mg PO DAILY 03/09/18 03/09/18 History Exam Vital signs: Vital Signs 03/09/18 09:52 03/09/18 09:56 03/09/18 10:24 Temperature 98 F Pulse Rate 87 75 Respiratory Rate 16 18 20 Blood Pressure 131/56 L 122/56 L Pulse Oximetry 97 94 L 03/09/18 11:15 03/09/18 11:53 03/09/18 14:30 Temperature Pulse Rate 62 69 Respiratory Rate 18 18 Blood Pressure 191/94 H Pulse Oximetry 97 Intake & Output 03/08/18 03/09/18 03/09/18 18:59 06:59 18:59 Weight 60.781 kg Narrative: GENERAL: AAOx3, no acute distress, adequate nutrition SKIN: Warm and dry, no rashes. HEAD: Atraumatic. Normocephalic. EYES: Pupils equal, round, reactive to light. No scleral icterus. No injection or drainage. ENT: No nasal bleeding or discharge. Moist mucous membranes. Nonerythematous oropharynx. NECK: Trachea midline. No JVD. Thyroid size within normal limits. CARDIOVASCULAR: Regular rate and rhythm. No murmur, no gallops, no rubs. RESPIRATORY: Mild atelectatic sounds in bases bilaterally. No crackles, no wheezes. No accessory muscle use. GASTROINTESTINAL: Abdomen soft, non-tender, nondistended, normal active bowel sounds. Hepatic and splenic margins not palpable. MUSCULOSKELETAL: Extremities without clubbing or cyanosis. No obvious deformities. No edema. NEUROLOGICAL: Awake and alert. No obvious cranial nerve deficits. Motor grossly within normal limits. No focal deficits. Five out of 5 muscle strength in the arms and legs. Normal speech. PSYCHIATRIC: Appropriate mood and affect; insight and judgment normal. Results - Labs CBC & Chem 7: 03/09/18 11:25 03/09/18 11:25 Labs: Laboratory Results - last 24 hr 03/09/18 03/09/18 03/09/18 11:25 11:25 11:25 WBC 5.1 RBC 4.40 Hgb 12.1 Hct 37.5 MCV 85.3 MCH 27.4 MCHC 32.1 RDW 14.7 Plt Count 323 MPV 8.4 Neut % (Auto) 51.0 Lymph % (Auto) 29.4 [place] % (Auto) 12.9 H Eos % (Auto) 5.9 H Baso % (Auto) 0.8 Neut # (Auto) 2.6 Lymph # (Auto) 1.5 [place] # (Auto) 0.7 Eos # (Auto) 0.3 Baso # (Auto) 0.0 WBC Differential . Differential Comment Auto diff final PT 13.0 H INR 1.3 APTT 26.4 Puncture Site Patient Temperature O2 Saturation ABG pH ABG pCO2 ABG pO2 ABG HCO3 ABG O2 Content ABG Base Excess ABG Methemoglobin Errol Test Hemoglobin Carboxyhemoglobin O2 Delivery Device Inspired O2 Critical Value Sodium 141 Potassium 3.8 Chloride 109 H Carbon Dioxide 21.5 Anion Gap 11 BUN 14 Creatinine 1.11 H Estimated GFR 61 L Random Glucose 118 H Calcium 8.8 Total Bilirubin 1.0 AST 20 ALT 22 Alkaline Phosphatase 107 Total Creatine Kinase 70 Troponin I Less than 0.02 L B-Natriuretic Peptide Total Protein 6.5 Albumin 3.1 L 03/09/18 03/09/18 11:25 12:12 WBC RBC Hgb Hct MCV MCH MCHC RDW Plt Count MPV Neut % (Auto) Lymph % (Auto) [place] % (Auto) Eos % (Auto) Baso % (Auto) Neut # (Auto) Lymph # (Auto) [place] # (Auto) Eos # (Auto) Baso # (Auto) WBC Differential Differential Comment PT INR APTT Puncture Site Right radial Patient Temperature 98.6 O2 Saturation 90 ABG pH 7.45 H ABG pCO2 37 L ABG pO2 61 ABG HCO3 25 ABG O2 Content 14.8 ABG Base Excess 1.4 ABG Methemoglobin 0.5 Errol Test Present Hemoglobin 11.7 L Carboxyhemoglobin 1.5 O2 Delivery Device Room air Inspired O2 21 Critical Value No Sodium Potassium Chloride Carbon Dioxide Anion Gap BUN Creatinine Estimated GFR Random Glucose Calcium Total Bilirubin AST ALT Alkaline Phosphatase Total Creatine Kinase Troponin I B-Natriuretic Peptide 1183 H Total Protein Albumin - Imaging Impressions Chest X-Ray 03/09/18 11:16 CONCLUSION: Mild prominence of interstitium which may represent pulmonary venous hypertension or mild edema. Mild left pleural effusion. Caprini VTE Risk Assessment Caprini VTE Risk Assessment: Moderate/High Risk (score >= 2) Caprini Risk Assessment Model: Point Value = 1 Point Value = 2 Point Value = 3 Point Value = 5 Age 41-60 Minor surgery BMI > 25 kg/m2 Swollen legs Varicose veins or History of unexplained or recurrent spontaneous Oral contraceptives or hormone replacement Sepsis (< 1 month) Serious lung disease, including pneumonia (< 1 month) Abnormal pulmonary function Acute myocardial infarction Congestive heart failure (< 1 month) History of inflammatory bowel disease Medical patient at bed rest Age 61-74 Arthroscopic surgery Major open surgery (> 45 min) Laparoscopic surgery (> 45 min) Malignancy Confined to bed (> 72 hours) Immobilizing plaster cast Central venous access Age >= 75 History of VTE Family history of VTE Factor V Leiden Prothrombin [id number] Lupus anticoagulant Anticardiolipin antibodies Elevated serum homocysteine Heparin-induced thrombocytopenia Other congenital or acquired thrombophilia Stroke (< 1 month) Elective arthroplasty Hip, pelvis, or leg fracture Acute spinal cord injury (< 1 month) Prophylaxis Regimen: Total Risk Factor Score Risk Level Prophylaxis Regimen 0-1 Low Early ambulation 2 Moderate Order ONE of the following: *Sequential Compression Device (SCD) *Heparin 5000 units SQ BID 3-4 Higher Order ONE of the following medications: *Heparin 5000 units SQ TID *Enoxaparin/Lovenox 40 mg SQ daily (WT < 150 kg, CrCl > 30 mL/min) *Enoxaparin/Lovenox 30 mg SQ daily (WT < 150 kg, CrCl > 10-29 mL/min) *Enoxaparin/Lovenox 30 mg SQ BID (WT < 150 kg, CrCl > 30 mL/min) AND/OR *Sequential Compression Device (SCD) 5 or more Highest Order ONE of the following medications: *Heparin 5000 units SQ TID (Preferred with Epidurals) *Enoxaparin/Lovenox 40 mg SQ daily (WT < 150 kg, CrCl > 30 mL/min) *Enoxaparin/Lovenox 30 mg SQ daily (WT < 150 kg, CrCl > 10-29 mL/min) *Enoxaparin/Lovenox 30 mg SQ BID (WT < 150 kg, CrCl > 30 mL/min) AND *Sequential Compression Device (SCD) Assessment and Plan - Plan CHF exacerbation Previous exacerbation was in 2014 Chest x-ray shows perihilar edema Patient is unable to ambulate long distances without oxygen desaturation Started on Bumex in the ER Continue Bumex Admit for short stay observation Consult cardiology for comparison of echo last December to prior echo h/o pulmonary sarcoidosis Inflammatory lung condition developed 6-7 years ago following radiation of left breast, status post left breast mastectomy If patient fails to respond to diuresis, and cardiology feels this is not cardiogenic, consider history of sarcoidosis Patient was previously on 10 mg of prednisone daily a few years ago Hypertension Patient became elevated, systolics to the 200 range while in the ER Continue home meds of carvedilol and losartan We will add parameters for clonidine as needed h/o dyslipidemia Continue atorvastatin DVT Prophylaxis Lovenox
[2018-03-09] MEDS ORDERED: Enoxaparin Inj 40 MG/0.4 ML Syringe SQ SCH (16:00)
--- NOTE | 2018-03-09 17:32 | MB ---
cc: Casimiro Dean MD DATE: 03/09/2018 REASON FOR CONSULTATION: Congestive heart failure. HISTORY OF PRESENT ILLNESS: The patient is a 58-year-old female, followed in our office by Dr. Vinay De Los Santos, with a history of left breast cancer, coronary artery disease, nonischemic cardiomyopathy, hypertension, chronic left bundle branch block, sarcoidosis, who presented to the hospital with shortness of breath. Last night, she had considerable dyspnea with minimal exertion, unable to lie flat last night and sleeping poorly. She felt fairly well this morning when getting ready for work, but the shortness of breath escalated in severity again. She denies chest pain, lightheadedness, syncope, near syncope, pedal edema, paroxysmal nocturnal dyspnea. Occasionally, she experiences brief fluttering, palpitations. She reports compliance with her medications, although she adds salt to most of her meals. PAST MEDICAL HISTORY: 1. Left breast cancer, status post mastectomy. 2. Coronary artery disease with cardiac catheterization 02/13/2015 showing 25% left main stenosis, mild LAD disease, normal left circumflex, right coronary and ramus intermedius, ejection fraction 30%. 3. Nonischemic cardiomyopathy dating back to 10/18/2014, at which time, her ejection fraction was 20-25% by echo. Her last available echocardiogram was 08/06/2016 in our office showing ejection fraction 40-45%. 4. Hyperlipidemia. 5. Hypertension. 6. Chronic left bundle branch block. 7. Not well documented history of paroxysmal atrial fibrillation. 8. Sarcoidosis. CARDIAC MEDICATIONS AT HOME: 1. Carvedilol 25 mg b.i.d. 2. Losartan 150 mg daily. 3. Atorvastatin 40 mg at bedtime. ALLERGIES: CODEINE. FAMILY HISTORY: There is no significant family history of early myocardial infarctions. SOCIAL HISTORY: The patient denies any history of alcohol or tobacco abuse. REVIEW OF SYSTEMS: As in the History Of Present Illness, otherwise negative or noncontributory. She also denies headache, abdominal pain, melena, dyspepsia. Rarely she experiences bright red blood per rectum from hemorrhoids. PHYSICAL EXAMINATION: VITAL SIGNS: Her blood pressure was 177/103 with a pulse of 77, respirations 18. GENERAL: She is a well-developed, well-nourished female in no acute distress. HEENT/NECK: Jugular venous pressure is normal. Carotid pulses are 2+ bilaterally and without bruits. CHEST: Reveals clear lungs o[place]nell. CARDIAC: She has a regular rhythm and rate with an S1, S2, S3. There is a grade 1/6 systolic murmur heard at the apex. ABDOMEN: She has a soft, nontender abdomen. Bowel sounds are present. There is no definite hepatosplenomegaly. EXTREMITIES: Reveals no clubbing, cyanosis or edema. DIAGNOSTIC STUDIES: EKG shows sinus rhythm, occasional PVC, left bundle branch block. Chest x-ray shows mildly increased interstitial markings and possible small left pleural effusion. LABORATORY DATA: Includes normal CBC. Potassium 3.8, BUN 14, creatinine 1.11. Troponin less than 0.02. CK 70. Brain natriuretic peptide level 1183. IMPRESSION: Mild congestive heart failure exacerbation in this 58-year-old female with a history of nonischemic cardiomyopathy, coronary artery disease, left breast cancer, hypertension, left bundle branch block, sarcoidosis, not well documented history of paroxysmal atrial fibrillation. At this time, there is no evidence for congestive heart failure by exam after administration of intravenous diuretics here in the emergency department. There is no evidence for acute coronary syndrome. She had minimal coronary artery disease by cardiac catheterization 3 years ago. The precipitating factor for her congestive heart failure may be dietary noncompliance. She does report compliance with her medications. RECOMMENDATIONS: 1. Discharge home in the morning on her usual home cardiac medications, although would also add a maintenance diuretic as well as amlodipine for better blood pressure control. 2. Check a 2-D echo to assess her left ventricular function; this can be done as an outpatient if it is not completed here in the hospital. 3. Will followup as needed. She can keep her regularly scheduled follow up with Dr. Vinay De Los Santos. MD RHIANNA Donnelly/JOSEPH , 05:11 PM , 05:20 PM KENNY
[2018-03-09] MEDS: amLODIPine 10 MG Tablet PO SCH (17:41)
[2018-03-09] MEDS ORDERED: Temazepam 15 MG Capsule PO PRN (21:00)
[2018-03-09] MEDS: Carvedilol 12.5 MG Tablet PO SCH (21:26)
--- NOTE | 2018-03-09 21:38 | ECG ---
Date Performed: 03/09/2018 Time Performed: 10:14:30 PTAGE: 58 years EKG: Sinus rhythm WITH OCCASIONAL VENTRICULAR PREMATURE COMPLEXES LEFT ATRIAL ENLARGEMENT LEFT BUNDLE BRANCH BLOCK ABN ORMAL ECG PREVIOUS TRACING : 04/04/2015 14.08 Since the previous tracing, no significant change noted DOCTOR: Samir Sanderson Interpretating Date/Time 03/09/2018 21:36:55
[2018-03-10 06:25] LABS: Hematocrit 40.5 % (35.0-46.0); Hemoglobin 13.1 gm/dL (11.6-15.3); Mean Corpuscular HGB Conc 32.3 % (32.0-36.0); Mean Corpuscular Hemoglobin 27.3 pg (27.0-34.0); Mean Corpuscular Volume 84.7 fL (80.0-100.0); Mean Platelet Volume 8.1 fL (7.0-11.0); Platelet Count 353 th/mm3 (150-450); Red Blood Count 4.79 mil/mm3 (4.00-5.30); Red Cell Distribution Width 14.7 % (11.6-17.2); White Blood Count 8.2 th/mm3 (4.0-11.0)
[2018-03-10 06:42] LABS: Calcium 9.3 mg/dL (8.5-10.1); Carbon Dioxide 29.4 meq/L (21.0-32.0); Potassium 3.7 meq/L (3.5-5.1)
[2018-03-10 06:51] LABS: Thyroid Stimulating Hormone 0.251 uIU/mL (0.358-3.740)
[2018-03-10] MEDS: amLODIPine 10 MG Tablet PO SCH ×2 (07:55→10:02)
[2018-03-10] MEDS: Carvedilol 12.5 MG Tablet PO SCH ×2 (07:55→08:41)
--- NOTE | 2018-03-10 09:13 | P.PNIM ---
Subjective Interval history: Pt feeling much better this morning She is ambulating without any complaints of SOB Denies any chest pain, palpitations, or nausea Physical Exam Vital signs: Vital Signs 03/09/18 09:52 03/09/18 09:56 03/09/18 10:24 Temperature 98 F Pulse Rate 87 75 Respiratory Rate 16 18 20 Blood Pressure 131/56 L 122/56 L Pulse Oximetry 97 94 L 03/09/18 11:15 03/09/18 11:53 03/09/18 14:30 Temperature Pulse Rate 62 69 Respiratory Rate 18 18 Blood Pressure 191/94 H Pulse Oximetry 97 03/09/18 16:21 03/09/18 16:23 03/09/18 17:55 Temperature 97.8 F Pulse Rate 82 77 Respiratory Rate 18 Blood Pressure 177/103 H 150/80 H Pulse Oximetry 95 03/09/18 20:00 03/10/18 00:00 03/10/18 03:22 Temperature 98.3 F 97.9 F 98.3 F Pulse Rate 72 68 60 Respiratory Rate 16 16 16 Blood Pressure 133/64 117/58 L 131/59 L Pulse Oximetry 93 L 95 95 03/10/18 07:32 Temperature 98.5 F Pulse Rate 60 Respiratory Rate 16 Blood Pressure 163/70 H Pulse Oximetry 94 L Intake & Output 03/09/18 03/10/18 03/10/18 18:59 06:59 18:59 Weight 60.781 kg Narrative: General: NAD, AAOx3 Chest: CTA Cardiac: Regular Abd: +BS, soft ND/NT Ext: No edema Results - Labs CBC & Chem 7: 03/10/18 05:50 03/10/18 05:50 Laboratory Results - last 24 hr 03/09/18 03/09/18 03/09/18 11:25 11:25 11:25 WBC 5.1 RBC 4.40 Hgb 12.1 Hct 37.5 MCV 85.3 MCH 27.4 MCHC 32.1 RDW 14.7 Plt Count 323 MPV 8.4 Neut % (Auto) 51.0 Lymph % (Auto) 29.4 [place] % (Auto) 12.9 H Eos % (Auto) 5.9 H Baso % (Auto) 0.8 Neut # (Auto) 2.6 Lymph # (Auto) 1.5 [place] # (Auto) 0.7 Eos # (Auto) 0.3 Baso # (Auto) 0.0 WBC Differential . Differential Comment Auto diff final PT 13.0 H INR 1.3 APTT 26.4 Puncture Site Patient Temperature O2 Saturation ABG pH ABG pCO2 ABG pO2 ABG HCO3 ABG O2 Content ABG Base Excess ABG Methemoglobin Errol Test Hemoglobin Carboxyhemoglobin O2 Delivery Device Inspired O2 Critical Value Sodium 141 Potassium 3.8 Chloride 109 H Carbon Dioxide 21.5 Anion Gap 11 BUN 14 Creatinine 1.11 H Estimated GFR 61 L Random Glucose 118 H Calcium 8.8 Total Bilirubin 1.0 AST 20 ALT 22 Alkaline Phosphatase 107 Total Creatine Kinase 70 Troponin I Less than 0.02 L B-Natriuretic Peptide Total Protein 6.5 Albumin 3.1 L TSH 03/09/18 03/09/18 03/10/18 11:25 12:12 05:50 WBC 8.2 D RBC 4.79 Hgb 13.1 Hct 40.5 MCV 84.7 MCH 27.3 MCHC 32.3 RDW 14.7 Plt Count 353 MPV 8.1 Neut % (Auto) Lymph % (Auto) [place] % (Auto) Eos % (Auto) Baso % (Auto) Neut # (Auto) Lymph # (Auto) [place] # (Auto) Eos # (Auto) Baso # (Auto) WBC Differential Differential Comment PT INR APTT Puncture Site Right radial Patient Temperature 98.6 O2 Saturation 90 ABG pH 7.45 H ABG pCO2 37 L ABG pO2 61 ABG HCO3 25 ABG O2 Content 14.8 ABG Base Excess 1.4 ABG Methemoglobin 0.5 Errol Test Present Hemoglobin 11.7 L Carboxyhemoglobin 1.5 O2 Delivery Device Room air Inspired O2 21 Critical Value No Sodium Potassium Chloride Carbon Dioxide Anion Gap BUN Creatinine Estimated GFR Random Glucose Calcium Total Bilirubin AST ALT Alkaline Phosphatase Total Creatine Kinase Troponin I B-Natriuretic Peptide 1183 H Total Protein Albumin TSH 03/10/18 05:50 WBC RBC Hgb Hct MCV MCH MCHC RDW Plt Count MPV Neut % (Auto) Lymph % (Auto) [place] % (Auto) Eos % (Auto) Baso % (Auto) Neut # (Auto) Lymph # (Auto) [place] # (Auto) Eos # (Auto) Baso # (Auto) WBC Differential Differential Comment PT INR APTT Puncture Site Patient Temperature O2 Saturation ABG pH ABG pCO2 ABG pO2 ABG HCO3 ABG O2 Content ABG Base Excess ABG Methemoglobin Errol Test Hemoglobin Carboxyhemoglobin O2 Delivery Device Inspired O2 Critical Value Sodium 137 Potassium 3.7 Chloride 102 Carbon Dioxide 29.4 Anion Gap 6 BUN 17 Creatinine 0.87 Estimated GFR 80 L Random Glucose 140 H Calcium 9.3 Total Bilirubin AST ALT Alkaline Phosphatase Total Creatine Kinase Troponin I B-Natriuretic Peptide Total Protein Albumin TSH 0.251 L - Imaging Impressions Chest X-Ray 03/09/18 11:16 CONCLUSION: Mild prominence of interstitium which may represent pulmonary venous hypertension or mild edema. Mild left pleural effusion. Assessment and Plan - Assessment (1) CHF exacerbation Code(s): I50.9 - Heart failure, unspecified Status: Acute Plan: CHF exacerbation Nonischemic cardiomyopathy - Pt is a 58 y/o female with a history of left breast cancer, coronary artery disease, nonischemic cardiomyopathy, hypertension, chronic left bundle branch block, and sarcoidosis - She presented to the ED at [facility] on 03/09/18 with complaints of shortness of breath that began the evening prior to admission. Patient is unable to ambulate long distances without oxygen desaturation - Chest x-ray in the ED noted perihilar edema - She was given IV Bumex in the ER and this was continued at 1mg BID at admission - Cardiology was consulted and pt was evaluated by Dr. Dean. Pt felt to be stable after IV diuretics from their standpoint but recommended adding a maintenance diuretic as well as amlodipine for better blood pressure control. - Pt reports that she has been on Furosemide in the past - Pt had a previously noted 2D echo on 10/18/2014, at which time, her ejection fraction was 20-25% by echo. - Her last available outpt echocardiogram was 08/06/2016 which showed ejection fraction 40-45%. - She had an echo repeated this morning which is pending. Pulmonary sarcoidosis - Pt with hx of inflammatory lung condition which reportedly developed 6-7 years ago following radiation of left breast, status post left breast mastectomy - Patient was previously on 10 mg of prednisone daily a few years ago but is not on any Prednisone at this time. Hypertension - Patients BP became elevated with systolic BP in the 200 range while in the ER - Home BP meds were continued, carvedilol and losartan, and Norvasc was added by Cardiology - Cont. above regimen - Monitor BP trend today - Clonidine as needed Dyslipidemia - Continue atorvastatin DVT Prophylaxis with Lovenox - Attending Attestation The exam, history, and the medical decision-making described in the above note were completed with the assistance of the mid-level provider. I reviewed and agree with the findings presented. I attest that I had a [id number] encounter with the patient on the same day, and personally performed and documented my assessment and findings in the medical record. Patient examined. Assessment and plan formulated with Kristen Delacruz PA-C. I agree with the above. (1) CHF exacerbation Qualifiers: Heart failure type: unspecified Qualified Code(s): I50.9 - Heart failure, unspecified
[2018-03-10 11:35] VITALS: BP 128/60; PULSE 65; RESP 18; TEMP 98.3; O2SAT 95
--- NOTE | 2018-03-10 15:41 | ECHRPT ---
Indication: CARDIOMYOPATHY CONCLUSIONS The left ventricular systolic function is normal with an estimated ejection fraction in the range of 55-60%. Normal left ventricular size. Wall thickness is normal. No regional wall motion abnormalities are present. Calcification of both mitral valve leaflets. Moderate mitral annular calcification. [id number] mitral valve regurgitation. Diffuse calcification of the aortic valve. Mild thickening of the tricuspid valve leaflets. There is mild to moderate tricuspid valve regurgitation. The estimated pulmonary arterial pressure is 54 mmHg. BP: / HR: Rhythm: Sinus MEASUREMENTS (Male / Female) Normal Values Technical Quality:Good 2D ECHO LV Diastolic Diameter PLAX 4.9 cm 4.2 - 5.9 / 3.9 - 5.3 cm LV Systolic Diameter PLAX 3.5 cm IVS Diastolic Thickness 1.0 cm 0.6 - 1.0 / 0.6 - 0.9 cm LVPW Diastolic Thickness 1.0 cm 0.6 - 1.0 / 0.6 - 0.9 cm LV Relative Wall Thickness 0.4 RV Internal Dim ED PLAX 1.7 cm LVOT Diameter 1.9 cm LA Systolic Diameter LX 3.5 cm 3.0 - 4.0 / 2.7 - 3.8 cm LV Ejection Fraction MOD 4C 59.3 % LV Ejection Fraction 4C AL 60.3 % M-MODE Aortic Root Diameter MM 1.9 cm LA Systolic Diameter MM 3.1 cm LA Ao Ratio MM 1.6 AV Cusp Separation MM 1.5 cm DOPPLER AV Peak Velocity 176.0 cm/s AV Peak Gradient 12.4 mmHg LVOT Peak Velocity 87.4 cm/s LVOT Peak Gradient 3.1 mmHg AV Area Cont Eq pk 1.4 cm MV Area PHT 3.7 cm Mitral E Point Velocity 138.0 cm/s Mitral A Point Velocity 95.8 cm/s Mitral E to A Ratio 1.4 LV E' Septal Velocity 4.0 cm/s Mitral E to LV E' Septal Ratio 34.5 TR Peak Velocity 330.0 cm/s TR Peak Gradient 43.6 mmHg Right Atrial Pressure 10.0 mmHg Pulmonary Artery Systolic Pressu 53.6 mmHg Right Ventricular Systolic Press 53.6 mmHg PV Peak Velocity 102.0 cm/s PV Peak Gradient 4.2 mmHg FINDINGS LEFT VENTRICLE The left ventricular systolic function is normal with an estimated ejection fraction in the range of 55-60%. Normal left ventricular size. Wall thickness is normal. No regional wall motion abnormalities are present. RIGHT VENTRICLE Normal right ventricular size and systolic function. LEFT ATRIUM The left atrial size is normal. RIGHT ATRIUM The right atrial size is normal. ATRIAL SEPTUM Normal atrial septal thickness without atrial level shunting by limited color doppler interrogation. AORTA The aortic root and proximal ascending aorta are normal in size on limited imaging. MITRAL VALVE Calcification of both mitral valve leaflets. Moderate mitral annular calcification. [id number] mitral valve regurgitation. AORTIC VALVE Trileaflet aortic valve. Diffuse calcification of the aortic valve. TRICUSPID VALVE Mild thickening of the tricuspid valve leaflets. There is mild to moderate tricuspid valve regurgitation. The estimated pulmonary arterial pressure is 53.6 mmHg. PULMONARY VALVE Trivial pulmonary valve regurgitation. VESSELS The inferior vena cava is normal in size. PERICARDIUM No pericardial effusion. Susy Cabrera MD, FACC (Electronically Signed) Final Date:10 March 2018 15:40
== END 2018-03-10 15:19 | disposition home or self-care (01) ==
LOC: NEPGCP 09:47 → NEPC 09:47 → NEDA 09:47 → NEPGCP 15:30
PROVIDERS: ADMIT Hospitalist; ATTEND Hospitalist